=== PATIENT | female | born 1990 | race Caucasian/White ===

== ENCOUNTER 2017-06-26 16:32 | Emergency (ER) | payer OTHER, MEDICAID ==
[~2017-06-26] VITALS: Ht 157.5 cm; Wt 60.0 kg
[~2017-06-26 16:32] MED LIST: BACT800T5 PO; IBUP800T23 PO
[2017-06-26 16:34] VITALS: BP 142/84; PULSE 97; RESP 12; TEMP 98.2; O2SAT 99
== END 2017-06-26 17:10 | disposition left against medical advice (07) ==
LOC: NED 16:32
DX: N94.9 Unspecified condition associated with female genital organs and menstrual cycle (principal)
CPT/HCPCS: 99281